=== PATIENT | male | born 1990 | race Caucasian/White ===

== ENCOUNTER 2017-11-14 13:01 | Emergency (ER) | payer SELFPAY ==
--- NOTE | 2017-11-14 13:37 | ED Physician Documentation ---
History of Present Illness - Stated complaint Stated Complaint: MALE - Chief complaint Chief Complaint: General - History obtained from History obtained from: Patient, Family - History of Present Illness Timing: How many weeks ago (3) Pain level max: 8 Pain level now: 5 - Additonal information Additional information: Patient is a 27-year-old male who presents to the emergency department with 3 weeks of intermittent left-sided testicular pain. Has had pain with ejaculation once. No dysuria. No changes in sexual partners. No trauma. Has never had similar symptoms. He is with one partner. Pain is worse with standing, walking. Better with lying down and elevation of the scrotum. Patient and spouse have practiced anal intercourse in the past without condoms. Review of Systems Constitutional: denies: Fever, Chills Respiratory: denies: Cough GI: denies: Abdominal Pain, Nausea, Vomiting, Diarrhea : denies: Dysuria, Frequency, Hesitancy, Hematuria, Discharge, Testicular mass Skin: denies: Rash Musculoskeletal: denies: Neck pain, Back pain PD PAST MEDICAL HISTORY - Past Medical History Past Medical History: No - Past Surgical History Past Surgical History: No - Present Medications Home Medications: Ambulatory Orders Medication Instructions Recorded Confirmed Hydrocodone/Acetaminophen 1 - 2 each PO Q6H PRN #14 tablet 11/14/17 [Hydrocodon-Acetaminophen 5-325] Levofloxacin [Levaquin] 500 mg PO DAILY #9 tablet 11/14/17 - Allergies Allergies/Adverse Reactions: Allergies Allergy/AdvReac Type Severity Reaction Status Date / Time No Known Drug Allergies Allergy Verified 11/14/17 13:12 - Living Situation Living Situation: reports: With spouse/s.o. Living Arrangement: reports: At home - Social History Does the pt smoke?: Yes Smoking Status: Current every day smoker Does the pt drink ETOH?: Yes ETOH Use: Beer Does the pt have substance abuse?: No PD ED PE NORMAL - Vitals Vital signs reviewed: Yes - General General: Alert and oriented X 3, No acute distress, Well developed/nourished - HEENT HEENT: Moist mucous membranes - Neck Neck: Supple, no meningeal sign - Cardiac Cardiac: RRR, Strong equal pulses - Respiratory Respiratory: No respiratory distress, Clear bilaterally - Abdomen Abdomen: Soft, Non distended, Other (Mild tenderness to palpation left lower quadrant. No peritoneal signs) - Male Male : Other (Foreskin appears normal. No discharge. Normal external appearance of the scrotum. Tender to palpation over the left epididymis. Also tender over the left testicle.) - Derm Derm: Warm and dry - Neuro Neuro: Alert and oriented X 3 - Psych Psych: Normal mood, Normal affect Results - Vitals Vitals: Vital Signs - 24 hr 11/14/17 11/14/17 13:09 14:39 Temperature 37.2 C 36.5 C Heart Rate 75 78 Respiratory 17 15 Rate Blood Pressure 125/76 131/87 H O2 Saturation 97 97 Oxygen O2 Source Room air - Labs Labs: Laboratory Tests 11/14/17 13:25 Urine Color YELLOW Urine Clarity CLEAR Urine pH 7.0 Ur Specific [place] 1.015 Urine Protein NEGATIVE Urine Glucose (UA) NEGATIVE Urine Ketones NEGATIVE Urine Occult Blood NEGATIVE Urine Nitrite NEGATIVE Urine Bilirubin NEGATIVE Urine Urobilinogen 0.2 (NORMAL) Ur Leukocyte Esterase SMALL H Urine RBC 0-5 Urine WBC 4-5 Ur Squamous Epith Cells NONE SEEN Urine Bacteria Rare Ur Microscopic Review INDICATED Urine Culture Comments INDICATED - Rads (name of study) Testicular ultrasound Radiology: Prelim report reviewed, EMP read contemporaneously, See rad report ( Enlarged left epididymis with increased vascularity within the left testicle and left epididymis consistent with epididymoorchitis. 2. Associated small left hydrocele. 3. Normal right testicle and epididymis. ) PD MEDICAL DECISION MAKING - ED course Complexity details: reviewed results, re-evaluated patient, considered differential, d/w patient, d/w family ED course: Patient is a 27-year-old male who presents to the emergency department with epididymitis. He has practiced anal intercourse with his without condoms, therefore will cover with a fluoroquinolone for coliform bacteria. Also given a dose of Rocephin intramuscularly. Gonorrhea and Chlamydia testing were sent, but he is low risk for this. We will also prescribe a small amount of pain medication for him. Patient counseled regarding signs and symptoms for which I believe and urgent re-evaluation would be necessary. Patient with good understanding of and agreement to plan and is comfortable going home at this time This document was made in part using voice recognition software. While efforts are made to proofread this document, sound alike and grammatical errors may occur. Departure - Departure Disposition: 01 Home, Self Care Clinical Impression: Epididymitis Condition: Good Instructions: ED Epididymitis Follow-Up: your,doctor in 1 week [Other] Prescriptions: Hydrocodone/Acetaminophen [Hydrocodon-Acetaminophen 5-325] 1 - 2 each PO Q6H PRN #14 tablet PRN Reason: pain Levofloxacin [Levaquin] 500 mg PO DAILY #9 tablet Comments: Take all antibiotics until gone. Return if you worsen. Do not drink alcohol or drive while on narcotic pain medicine. Note that many narcotic pain relievers also contain tylenol/acetaminophen. Please ensure that your total dose of acetaminophen from all sources does not exceed 3 grams (3000mg) per day. You may constipated on this medication, take a stool softener such as "Colace" twice a day while you are on it. Also recommend a gwcl-xhb-sywjmgw laxative such as senna or MiraLAX any day that you do not have a bowel movement. If you received narcotic pain medication in the emergency department, do not drive or operate machinery for the next 24 hours.
[2017-11-14 13:42] LABS: BILIRUBIN,URINE NEGATIVE (NEGATIVE)
[2017-11-14 14:08] LABS: UA w/ MICROSCOPIC CHARGE YES
[2017-11-14 14:10] LABS: UR CULTURE IF IND INDICATED
[2017-11-14 14:40] VITALS: BP 131/87
--- NOTE | 2017-11-14 14:53 | Ultrasound Preliminary Report ---
Exam: US TESTICLE W/DOPPLER IMPRESSION: 1. Enlarged left epididymis with increased vascularity within the left testicle and left epididymis c onsistent with epididymoorchitis. 2. Associated small left hydrocele. 3. Normal right testicle and epididymis. [facility] SITE ID: [id number]
--- NOTE | 2017-11-14 14:55 | Ultrasound Report ---
EXAM: SCROTAL ULTRASOUND EXAM DATE: 11/14/2017 02:18 PM. CLINICAL HISTORY: Left testicular pain, swelling. COMPARISON: None. TECHNIQUE: Real-time scanning was performed with static images obtained. Both color-flow and Doppler spectral analysis were utilized. FINDINGS: Right: Testis: 4.1 x 2.2 x 2.6 cm. Normal size and echotexture. No mass, calcification, or abnormal blood fl ow. Epididymis: 0.5 x 2.5 x 1.1 cm. Normal size and echotexture. No mass or abnormal blood flow. Hydrocele: None. Varicocele: None. Left: Testis: 4.2 x 2.7 x 2.9 cm. Diffusely increased blood flow without focal lesion. Epididymis: 2.4 x 1.7 x 4.6 cm. Enlarged, heterogeneous and hypervascular. Hydrocele: Small Varicocele: None. IMPRESSION: 1. Enlarged left epididymis with increased vascularity within the left testicle and left epididymis c onsistent with epididymoorchitis. 2. Associated small left hydrocele. 3. Normal right testicle and epididymis. [facility] Referring Provider Line: [phone] SITE ID: [id number]
[2017-11-14] MEDS ORDERED: cefTRIAXone 250 MG VIAL IM STA (15:03)
[2017-11-14] MEDS ORDERED: HYDROcod/ACETAM 5/325 MG TABLET PO STA (15:07)
[2017-11-14] MEDS ORDERED: levoFLOXacin 250 MG TABLET PO STA (15:07)
[2017-11-14] MEDS ORDERED: LIDOCAINE 1% 2 ML VIAL ONE (15:23)
== END 2017-11-14 15:30 | disposition home or self-care (01) ==
LOC: ED 13:01
DX: N45.1 Epididymitis (principal); N43.3 Hydrocele, unspecified; F17.200 Nicotine dependence, unspecified, uncomplicated
CPT/HCPCS: 76870; 81001; 87086; 87491; 87591; 93975; 96372; 99283; A9270; 81003

== ENCOUNTER 2019-07-26 17:07 | Emergency (ER) | payer OTHER ==
[2019-07-26 17:11] VITALS: BP 135/82
--- NOTE | 2019-07-26 17:17 | ED Physician Documentation ---
PD HPI UPPER EXT INJURY - Stated complaint Stated Complaint: RT ELBOW PX/INJ - Chief complaint Chief Complaint: Ext Problem - History obtained from History obtained from: Patient - History of Present Illness Location: Right, Elbow Type of injury: Other (He was shoveling dirt and upon lifting a heavy shovel full noted onset of her right lateral elbow pain with a feeling of a pop. He has pain with flexion and supination since that time. He states he has a little numbness in his ulnar side fingers. He has not had any prior similar episodes.) Where injury occurred: Work Timing - onset: Today Timing - duration: Hours Timing - details: Abrupt onset, Still present Worsened by: Moving, Palpating (at lateral condyle area) Associated symptoms: Weakness (for supination and flexion of forearm), Tingling (lateral fingers) Contributing factors: No: Prior ortho surgery Similar symptoms before: Has not had sx before Review of Systems Skin: denies: Abrasion (s), Laceration (s) Musculoskeletal: denies: Neck pain, Back pain Neurologic: denies: Generalized weakness PD PAST MEDICAL HISTORY - Past Medical History Past Medical History: No - Past Surgical History Past Surgical History: No - Present Medications Home Medications: Ambulatory Orders Medication Instructions Recorded Confirmed Hydrocodone/Acetaminophen 1 - 2 each PO Q6H PRN #14 tablet 11/14/17 [Hydrocodon-Acetaminophen 5-325] Levofloxacin [Levaquin] 500 mg PO DAILY #9 tablet 11/14/17 RX: Naproxen 500 mg PO BID #20 tablet 07/26/19 RX: Tramadol HCl 50 mg PO Q6H PRN #15 tablet 07/26/19 - Allergies Allergies/Adverse Reactions: Allergies Allergy/AdvReac Type Severity Reaction Status Date / Time No Known Drug Allergies Allergy Verified 07/26/19 17:11 - Social History Does the pt smoke?: Yes Smoking Status: Current every day smoker Does the pt drink ETOH?: Yes Does the pt have substance abuse?: No PD ED PE NORMAL - Vitals Vital signs reviewed: Yes - General General: Alert and oriented X 3, No acute distress, Well developed/nourished - Derm Derm: Normal color, Warm and dry - Extremities Extremities: Other (He has some tenderness over the lateral condyle of the elbow and a little bit posteriorly. There is no obvious deformity. There is some mild swelling locally. There is no tenderness at the radial head and the antecubital area. He has normal color capillary refill and pulses in the wrist and fingers. There is normal sensation to touch in the fingers.) - Neuro Neuro: Alert and oriented X 3, No motor deficit (feels weaker to flex and supinate mainly due to guarded ROM from hurting. ), No sensory deficit, Normal speech Results - Vitals Vitals: Vital Signs - 24 hr 07/26/19 17:10 Temperature 36.0 C L Heart Rate 97 Respiratory 18 Rate Blood Pressure 135/82 H O2 Saturation 99 Oxygen O2 Source Room air - Rads (name of study) right elbow Radiology: Prelim report reviewed (no fractures), See rad report PD MEDICAL DECISION MAKING - ED course Complexity details: considered differential (Presume acute strain of brachioradialis at condyle area. Will use sling and NSAIDs, limited use for few days. ), d/w patient Departure - Departure Disposition: 01 Home, Self Care Clinical Impression: Strain of elbow, right Condition: Stable Record reviewed to determine appropriate education?: Yes Instructions: ED Sprain Elbow Follow-Up: Donn Damian MD [Provider Admit Priv/Credential] - Prescriptions: RX: Naproxen 500 mg PO BID #20 tablet RX: Tramadol HCl 50 mg PO Q6H PRN #15 tablet PRN Reason: Pain Comments: The x-ray appears normal without any obvious bony injury. Your exam would suggest some strain and may be partial tear of muscle tendon from the elbow attachment at the condyle. Use a sling for diminished use and guarded range of motion for several days. Use some anti-inflammatories such as naproxen or ibuprofen. Add Tylenol or tramadol if needed for pain. Recheck with Ortho if not improved over the next several days to week. Progressed to normal activity if tolerated over the next week. Forms: Activity restrictions Discharge Date/Time: 07/26/19 18:48
[2019-07-26] MEDS ORDERED: ACETAMINOPHEN 325 MG TABLET PO STA (17:30)
[2019-07-26] MEDS ORDERED: IBUPROFEN 600 MG TABLET PO STA (17:30)
--- NOTE | 2019-07-26 19:06 | XRAY Report ---
Reason: right elbow lateral pain with lifting heavy Procedure Date: 07/26/2019 Accession Number: [id number] / [id number] Procedure: XR - Elbow 3 View RT CPT Code: FULL RESULT: EXAM: RIGHT ELBOW RADIOGRAPHY EXAM DATE: 07/26/2019 06:30 PM. CLINICAL HISTORY: Right elbow lateral pain with lifting heavy. Right elbow pain while working. Waddy pop. COMPARISON: None. TECHNIQUE: 3 views. FINDINGS: Bones: Normal. No fractures or bone lesions. Joints: Normal. No effusion. No subluxation. Soft Tissues: Normal. No soft tissue swelling. IMPRESSION: Normal elbow radiography. [facility]
== END 2019-07-26 18:48 | disposition home or self-care (01) ==
LOC: ED 17:07
DX: S46.811A Strain of other muscles, fascia and tendons at shoulder and upper arm level, right arm, initial encounter (principal); X50.0XXA Overexertion from strenuous movement or load, initial encounter; Y93.H1 Activity, digging, shoveling and raking; Y99.0 Civilian activity done for income or pay; F17.200 Nicotine dependence, unspecified, uncomplicated
CPT/HCPCS: 1040M; 73080; 99283; A9270

== ENCOUNTER 2019-09-03 08:14 | Outpatient (CLI) | payer OTHER | END 2019-09-03 08:15 | disposition home or self-care (01) | LOC: DI 08:14 | PROVIDERS: ATTEND Orthopaedic Surgery Sports Medicine | DX: M25.521 Pain in right elbow (principal); Z53.9 Procedure and treatment not carried out, unspecified reason ==

== ENCOUNTER 2019-09-07 08:23 | Outpatient (CLI) | payer OTHER ==
--- NOTE | 2019-09-07 12:26 | MRI Report ---
Reason: ELBOW PAIN RIGHT Procedure Date: 09/07/2019 Accession Number: [id number] / [id number] Procedure: MRI - Elbow RT W/O CPT Code: FULL RESULT: EXAM: RIGHT ELBOW MRI WITHOUT CONTRAST EXAM DATE: 09/07/2019 09:25 AM. CLINICAL HISTORY: Injured while digging a hole. Pain. Restricted range of motion. COMPARISON: None. TECHNIQUE: Multiplanar, multisequence T1-weighted and fluid-sensitive sequences of the elbow without contrast. Other: None. FINDINGS: Bones: No fractures or subluxations. No marrow edema. No bone lesions. Articular Cartilage: Unremarkable. Ligaments: The ulnar collateral, lateral ulnar collateral, radial collateral, and annular ligaments are intact. Tendons: There is a 7 x 2 mm fluid signal intensity focus in the common extensor origin consistent with low-grade intrasubstance tear. The common flexor origin appears normal. The distal biceps, brachialis, and triceps tendons are unremarkable. Musculature: No edema or fatty atrophy. Other: The cubital tunnel and ulnar nerve are unremarkable. No effusion. The subcutaneous tissues are unremarkable. IMPRESSION: 1. Low-grade partial-thickness tear of the common extensor origin. 2. No other significant abnormality. [facility]
== END 2019-09-07 08:24 | disposition home or self-care (01) ==
LOC: DI 08:23
PROVIDERS: ATTEND Orthopaedic Surgery Sports Medicine
DX: S56.511A Strain of other extensor muscle, fascia and tendon at forearm level, right arm, initial encounter (principal)

== ENCOUNTER 2020-09-05 10:08 | Outpatient (CLI) | payer OTHER ==
[2020-09-05 08:40] LABS: MUDS CUTOFF CONCENTRATIONS CUTOFF CONC BELOW:
--- NOTE | 2020-09-05 11:04 | XRAY Report ---
PROCEDURE: Chest 2 View X-Ray INDICATIONS: PRE-EMPLOYMENT PHYSICAL TECHNIQUE: 2 view(s) of the chest. COMPARISON: None. FINDINGS: Surgical changes and devices: None. Lungs and pleura: No pleural effusions or pneumothorax. Lungs are clear. Mediastinum: Mediastinal contours are normal. Heart size is normal. Bones and chest wall: No suspicious bony abnormalities. Soft tissues appear unremarkable. IMPRESSION: No acute pulmonary process. Reviewed by: Erlinda Eric MD on 09/05/2020 11:02 AM PDT Approved by: Erlinda Eric MD on 09/05/2020 11:02 AM PDT Station ID: [id number]
[2020-09-05 11:45] LABS: BILIRUBIN,URINE NEGATIVE (NEGATIVE); GLUCOSE, URINE (UA) NEGATIVE (NEGATIVE); KETONES,URINE (UA) NEGATIVE (NEGATIVE); LEUKOCYTE ESTERASE, URINE NEGATIVE (NEGATIVE); NITRITE,URINE NEGATIVE (NEGATIVE); OCCULT BLOOD,URINE NEGATIVE (NEGATIVE); PROTEIN,URINE NEGATIVE (NEGATIVE); UROBILINOGEN,URINE 0.2 (NORMAL) E.U./dL (NORMAL)
[2020-09-05 11:51] LABS: AMORPHOUS SEDIMENT,UR Few /LPF; BACTERIA,URINE Few /HPF (None Seen); CLARITY,URINE HAZY (CLEAR); RBC,URINE 0-5 /HPF (0-5); SQUAMOUS EPITHELIAL CELL,UR RARE Squamous (<= Few)
[2020-09-05 11:57] LABS: AMPHETAMINE SCREEN,URINE NEGATIVE (NEGATIVE); BENZODIAZEPINES SCREEN, URINE NEGATIVE (NEGATIVE); COCAINE SCREEN URINE NEGATIVE (NEGATIVE); METHADONE SCREEN, URINE NEGATIVE (NEGATIVE); METHAMPHETAMINES SCREEN, URINE NEGATIVE (NEGATIVE); OPIATE SCREEN, URINE NEGATIVE (NEGATIVE); OXYCODONE SCREEN, URINE NEGATIVE (NEGATIVE); PROPOXYPHENE SCREEN, URINE NEGATIVE (NEGATIVE); TRICYCLIC ANTIDEPRESSANT,URINE NEGATIVE (NEGATIVE)
[2020-09-05 11:58] LABS: BASOPHILS # (AUTO) 0.1 10^3/uL (0.0-0.1); BASOPHILS % (AUTO) 0.9 %; EOSINOPHILS # (AUTO) 0.1 10^3/uL (0.0-0.7); EOSINOPHILS % (AUTO) 1.6 %; HGB - HEMOGLOBIN 15.8 g/dL (14.0-18.0); LYMPHOCYTES # (AUTO) 2.8 10^3/uL (1.5-3.5); LYMPHOCYTES % (AUTO) 39.5 %; MEAN CORPUSCULAR HEMOGLOBIN 30.7 pg (27.0-31.0); MEAN CORPUSCULAR HGB CONC 33.5 g/dL (32.0-36.0); MEAN CORPUSCULAR VOLUME 91.5 fL (80.0-94.0); MEAN PLATELET VOLUME 11.1 fL (7.4-11.4); MONOCYTES # (AUTO) 0.6 10^3/uL (0.0-1.0); MONOCYTES % (AUTO) 8.1 %; NEUTROPHILS # (AUTO) 3.5 10^3/uL (1.5-6.6); NEUTROPHILS % (AUTO) 49.6 %; PLT - PLATELET COUNT 279 10^3/uL (130-450); RED BLOOD COUNT 5.15 10^6/uL (4.70-6.10); RED CELL DISTRIBUTION WIDTH 11.8 % (12.0-15.0)
[2020-09-05 12:20] LABS: ALBUMIN 4.3 g/dL (3.2-5.5); ALBUMIN/GLOBULIN RATIO 1.2 (1.0-2.2); ALKALINE PHOSPHATASE 52 IU/L (42-121); ALT ALANINE AMINOTRANSFERASE 26 IU/L (10-60); AST ASPARTATE AMINOTRANSFERASE 25 IU/L (10-42); BILIRUBIN,TOTAL 0.9 mg/dL (0.2-1.0); BUN - BLOOD UREA NITROGEN 13 mg/dL (6-20); CALCIUM 9.3 mg/dL (8.5-10.3); CARBON DIOXIDE - CO2 24 mmol/L (21-32); CHLORIDE 104 mmol/L (101-111); CHOLESTEROL 223 mg/dL; CREATININE 0.9 mg/dL (0.6-1.2); GLUCOSE 99 mg/dL (70-100); HDL CHOLESTEROL 37 mg/dL; LDL CHOLESTEROL,CALCULATED 135 mg/dL; LDL/HDL RATIO 3.6 (<3.6); SODIUM 137 mmol/L (135-145); TOTAL PROTEIN 7.8 g/dL (6.7-8.2); VLDL CHOLESTEROL 51 mg/dL
== END 2020-09-05 23:59 | disposition home or self-care (01) ==
LOC: DI.WCP 10:08
PROVIDERS: ATTEND Family Medicine
DX: Z13.9 Encounter for screening, unspecified (principal); Z01.89 Encounter for other specified special examinations
CPT/HCPCS: 36415; 80053; 80061; 80306; 81001; 83721; 85025